=== PATIENT | female | born 1960 | race Hispanic/Latino ===

== ENCOUNTER 2018-01-26 09:33 | Observation (INO) | payer BC ==
[~2018-01-26] VITALS: Ht 162.6 cm; Wt 81.2 kg
[2018-01-26] MEDS ORDERED: ASPIRIN 81 MG CHEW TAB PO ONE (09:45)
[2018-01-26 10:03] LABS: BASOPHILS % 0.3 % (0.0-1.0); EOSINOPHILS # (AUTO) 0.2 (0.0-0.4); EOSINOPHILS % 3.1 % (0.0-6.0); HEMATOCRIT 39.7 % (34.2-44.1); HEMOGLOBIN 13.1 g/dL (12.0-16.0); LYMPHOCYTES # (AUTO) 1.7 (1.0-3.2); MEAN CORPUSCULAR HEMOGLOBIN 29.5 pg (28-32); MEAN CORPUSCULAR VOLUME 89.4 fL (81-99); MONOCYTES # (AUTO) 0.5 (0.2-0.8); MONOCYTES % 7.5 % (4.4-11.3); NEUTROPHILS # (AUTO) 4.1 (2.1-6.9); NEUTROPHILS % 62.9 % (38.7-80.0); PLATELET COUNT 271 x10e3/uL (140-360); RED BLOOD COUNT 4.44 x10e6/uL (3.6-5.1); RED CELL DISTRIBUTION WIDTH 13.1 % (11.7-14.4)
[2018-01-26 10:10] LABS: INR 1.04; PROTHROMBIN TIME 12.8 seconds (11.9-14.5)
[2018-01-26 10:11] LABS: PARTIAL THROMBOPLASTIN TIME 30.5 seconds (23.8-35.5)
[2018-01-26 10:18] LABS: ALANINE AMINOTRANSFERASE 11 IU/L (0-55); ALBUMIN 3.8 g/dL (3.5-5.0); ALBUMIN/GLOBULIN RATIO 1.1 (0.8-2.0); ALKALINE PHOSPHATASE 94 IU/L (40-150); ANION GAP 11.6 mmol/L (8-16); BLOOD UREA NITROGEN 10 mg/dL (7-26); BUN/CREATININE RATIO 15 (6-25); CALCIUM 9.5 mg/dL (8.4-10.2); CARBON DIOXIDE 27 mmol/L (22-29); CHLORIDE 108 mmol/L (98-107); CREATINE KINASE 84 IU/L (29-168); CREATININE, SERUM 0.66 mg/dL (0.57-1.11); EST GLOMERULAR FILTRATION RATE > 60 ML/MIN (60-); GLUCOSE 74 mg/dL (74-118); POTASSIUM 3.6 mmol/L (3.5-5.1); SODIUM 143 mmol/L (136-145)
--- NOTE | 2018-01-26 11:06 | Diagnostic Imaging Report ---
PROCEDURE: A single AP view of the chest. COMPARISON: None. INDICATIONS: LEFT ARM NUMBNESS, DIZZINESS FINDINGS: Lines/tubes: None. Lungs: The lungs are well inflated and clear. There is no evidence of pneumonia or pulmonary edema. Pleura: There is no pleural effusion or pneumothorax. Heart and mediastinum: The heart and the mediastinum are unremarkable. Bones: No acute bony abnormality. IMPRESSION: 1. No acute cardiopulmonary disease. Dictated by: Gerry Sr M.D. on 01/26/2018 at 11:08 Electronically approved by: Gerry Sr M.D. on 01/26/2018 at 11:08
[2018-01-26] MEDS ORDERED: SODIUM CHLORIDE FLUSH 10 ML SYR INJ PRN (11:45)
[2018-01-26] MEDS ORDERED: ONDANSETRON HCL INJ 2 MG/ML VIAL IV PRN (11:45)
[2018-01-26] MEDS ORDERED: MORPHINE SULFATE 2 MG/ML SYR IV PRN (11:45)
[2018-01-26] MEDS ORDERED: NITROGLYCERIN 0.4 MG SUBL SL PRN (11:45)
[2018-01-26] MEDS: FAMOTIDINE 20 MG TAB PO SCH ×2 (12:00→21:54)
--- OUTSIDE RECORDS SUMMARY | 2018-01-26 13:13 | XMS REPORT ---
[facility] Unknown Phone Unavailable Care Team Providers Care Lace Winder Name Role Phone STEPHEN GAGNON Unavailable Unavailable Problems This patient has no known problems. Allergies, Adverse Reactions, Alerts This patient has no known allergies or adverse reactions. Medications This patient has no known medications. Results Test Description Test Time Test Comments Text Results Atomic Results Result Comments CHEST SINGLE (PORTABLE) [place] [address] Patient Name: CHARLES COLON MR #: [id number] : 1960 Age/Sex: 57/F Req #: [id number] Adm Physician: Ordered by: STEPHEN GAGNON MD Report #: [id number] Location: ER Room/Bed: Procedure: [id number] DX/CHEST SINGLE (PORTABLE) Exam Date: 01/26/18 Exam Time: 0955 REPORT STATUS: Signed PROCEDURE: A single AP view of the chest. COMPARISON: None. INDICATIONS: LEFT ARM NUMBNESS, DIZZINESS FINDINGS: Lines/tubes: None. Lungs: The lungs are well inflated and clear. There is no evidence of pneumonia or pulmonary edema. Pleura: There is no pleural effusion or pneumothorax. Heart and mediastinum: The heart and the mediastinum are unremarkable. Bones: No acute bony abnormality. IMPRESSION: 1. No acute cardiopulmonary disease. Dictated by: Gerry Sr M.D. on 01/26/2018 at 11:08 Electronically approved by: Gerry Sr M.D. on 01/26/2018 at 11:08 Dictated By: GERRY SR MD 110 Transcribed By: PAULINO on 01/26/181107 COPY TO: STEPHEN GAGNON MD
[2018-01-26 13:30] VITALS: BP 140/76
[2018-01-26 13:49] VITALS: BP 126/87
[2018-01-26 15:18] VITALS: BP 140/76
[2018-01-26 17:07] LABS: CREATINE KINASE 74 IU/L (29-168)
--- NOTE | 2018-01-26 18:46 | History and Physical ---
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 She did not feel good and she apparently thought she was having a stroke or heart attack and came into the emergency room and was admitted for rule out [place]. Also complains of slight amount normal grief reaction from her father passing away recently with depression and has been having crying spells about it. The patient also has history of back pains. PAST MEDICAL HISTORY: Noncontributory. FAMILY HISTORY: History of diabetes mellitus. History of dad who just recently from pancreatic cancer and diabetes in mother. SOCIAL HISTORY: No EtOH. No IV drug abuse. No history of any smoking either. REVIEW OF SYSTEMS: Negative for chest pain. No shortness of breath. Positive for left arm pain. No nausea, vomiting, diarrhea. No constipation. No rectal bleeding. No hematochezia. No hematemesis. No blurry vision. No diplopia. SURGICAL HISTORY: Positive for hysterectomy and knee surgery. PHYSICAL EXAMINATION GENERAL: Patient is alert and oriented times 3. VITALS: Temperature is 97.8, blood pressure is 126/88, pulse is 81, respirations of 20. HEENT: Normocephalic, atraumatic. Pupils reactive to light and accommodation. CVS: S1, S2 normal. Regular rate, rhythm. ABDOMEN: Nontender, nondistended. EXTREMITIES: No clubbing, no cyanosis, no edema. BACK: Positive for tenderness in the lumbar spine. ASSESSMENT AND PLAN: Chest pain, atypical. Troponins have been negative. Laboratories are essentially normal. Will continue to monitor the patient, three sets of troponins and we can discharge the patient tomorrow in the morning. Further recommendations per clinical course. The patient is also possibly having lumbar pain. Will continue on nonsteroidal anti-inflammatory drug as needed for this. Job#: [id number]
[2018-01-26 18:56] VITALS: BP 140/76
[2018-01-26 21:27] VITALS: BP 157/84
[2018-01-26 21:45] VITALS: BP 157/84
[2018-01-26 22:03] LABS: CREATINE KINASE 65 IU/L (29-168)
[2018-01-27 00:46] VITALS: BP 124/76
[2018-01-27 04:00] VITALS: BP 118/74
[2018-01-27 04:43] VITALS: BP 118/74
[2018-01-27 06:39] LABS: BASOPHILS % 0.7 % (0.0-1.0); EOSINOPHILS # (AUTO) 0.2 (0.0-0.4); EOSINOPHILS % 3.8 % (0.0-6.0); HEMATOCRIT 40.1 % (34.2-44.1); LYMPHOCYTES # (AUTO) 1.8 (1.0-3.2); LYMPHOCYTES % 32.1 % (18.0-39.1); MEAN CORPUSCULAR HEMOGLOBIN 29.1 pg (28-32); MEAN CORPUSCULAR HGB CONC 32.4 g/dL (31-35); MEAN CORPUSCULAR VOLUME 89.7 fL (81-99); MONOCYTES # (AUTO) 0.5 (0.2-0.8); NEUTROPHILS % 54.2 % (38.7-80.0); PLATELET COUNT 249 x10e3/uL (140-360); RED BLOOD COUNT 4.47 x10e6/uL (3.6-5.1); RED CELL DISTRIBUTION WIDTH 13.2 % (11.7-14.4)
[2018-01-27 07:00] VITALS: BP 118/74
[2018-01-27 07:15] LABS: ANION GAP 11.3 mmol/L (8-16); BLOOD UREA NITROGEN 9 mg/dL (7-26); BUN/CREATININE RATIO 13 (6-25); CALCIUM 9.4 mg/dL (8.4-10.2); CARBON DIOXIDE 27 mmol/L (22-29); CHLORIDE 108 mmol/L (98-107); CHOL/HDL RATIO 4.4 (3.0-3.6); CHOLESTEROL 206 MD/DL (0-199); CREATINE KINASE 55 IU/L (29-168); CREATININE, SERUM 0.69 mg/dL (0.57-1.11); EST GLOMERULAR FILTRATION RATE > 60 ML/MIN (60-); GLUCOSE 90 mg/dL (74-118); HDL CHOLESTEROL 47 MG/DL (40-60); LDL CHOLESTEROL 138 MG/DL (60-130); POTASSIUM 4.3 mmol/L (3.5-5.1); SODIUM 142 mmol/L (136-145); TRIGLYCERIDES 103 MG/DL (0-149)
[2018-01-27 08:26] VITALS: BP 115/72
[2018-01-27] MEDS ORDERED: ONDANSETRON HCL 4 MG ORAL DISINTEGRATING TAB PO PRN (08:45)
[2018-01-27] MEDS ORDERED: ASPIRIN 81 MG ENTERIC COATED PO SCH (09:00)
== END 2018-01-27 08:30 | disposition home or self-care (01) ==
LOC: ER 09:33 → IMCU 13:10
PROVIDERS: ADMIT Family Medicine; ATTEND Family Medicine
DX: R07.89 Other chest pain (principal); F43.21 Adjustment disorder with depressed mood; Z80.8 Family history of malignant neoplasm of other organs or systems; Z83.3 Family history of diabetes mellitus; M54.9 Dorsalgia, unspecified; F41.9 Anxiety disorder, unspecified
CPT/HCPCS: 36415 ×2; 71045; 80048; 80053; 80061; 82550 ×2; 82553 ×2; 83880; 84484 ×2; 85025 ×2; 85610; 85730; 93005; 99284; G0378 ×2

== ENCOUNTER 2021-05-11 17:45 | Emergency (ER) | payer BC ==
[~2021-05-11] VITALS: Ht 162.6 cm; Wt 81.2 kg
== END 2021-05-11 18:40 | disposition home or self-care (01) ==
LOC: ER 18:30
DX: R05 Cough (principal); U07.1 COVID-19; D64.9 Anemia, unspecified
CPT/HCPCS: 99282

== ENCOUNTER 2021-05-17 15:49 | Inpatient (IN) | payer BC ==
[~2021-05-17] VITALS: Ht 162.6 cm; Wt 81.2 kg
[2021-05-17] MEDS ORDERED: DEXAMETHASONE SOD PHOS 10 MG/1 ML VIAL IV ONE (16:00)
[2021-05-17 16:24] LABS: HEMATOCRIT 42.6 % (34.2-44.1); HEMOGLOBIN 13.8 g/dL (12.0-16.0); MEAN CORPUSCULAR HEMOGLOBIN 29.1 pg (28-32); MEAN CORPUSCULAR VOLUME 89.7 fL (81-99); RED BLOOD COUNT 4.75 x10e6/uL (3.6-5.1)
[2021-05-17 16:25] LABS: BASOPHILS % 0.1 % (0.0-1.0); LYMPHOCYTES # (AUTO) 0.9 (1.0-3.2); MEAN CORPUSCULAR HGB CONC 32.4 g/dL (31-35); MONOCYTES # (AUTO) 0.8 (0.2-0.8); MONOCYTES % 5.3 % (4.4-11.3); NEUTROPHILS # (AUTO) 12.5 (2.1-6.9); NEUTROPHILS % 87.9 % (38.7-80.0); PLATELET COUNT 292 x10e3/uL (140-360)
[2021-05-17 16:33] LABS: INR 1.03; PROTHROMBIN TIME 13.7 seconds (11.9-14.5)
[2021-05-17 16:40] LABS: ALBUMIN 2.9 g/dL (3.5-5.0); ALBUMIN/GLOBULIN RATIO 0.6 (0.8-2.0); ANION GAP 21.5 mmol/L (8-16); CALCIUM 9.2 mg/dL (8.4-10.2); CREATININE, SERUM 0.73 mg/dL (0.57-1.11); POTASSIUM 3.5 mmol/L (3.5-5.1)
[2021-05-17] MEDS ORDERED: SODIUM CHLORIDE 0.9% 50ML 0 ML ONE (18:55)
[2021-05-17] MEDS ORDERED: IOPAMIDOL 370 MG/ML 200 ML INFUS..BTL INJ ONE (18:55)
[2021-05-17] MEDS ORDERED: SODIUM CHLORIDE 0.9% 250ML 250 ML ONE (19:11)
[2021-05-17] MEDS: CEFTRIAXONE 2 GM in SODIUM CHLORIDE 0.9% 100 ML IV SCH (19:57)
[2021-05-17] MEDS: ENOXAPARIN 30 MG/0.3 ML SYR SC SCH (20:03)
[2021-05-18 06:50] LABS: BASOPHILS % 0.1 % (0.0-1.0); HEMATOCRIT 41.1 % (34.2-44.1); HEMOGLOBIN 13.3 g/dL (12.0-16.0); LYMPHOCYTES # (AUTO) 0.6 (1.0-3.2); LYMPHOCYTES % 5.9 % (18.0-39.1); MEAN CORPUSCULAR HEMOGLOBIN 28.7 pg (28-32); MEAN CORPUSCULAR HGB CONC 32.4 g/dL (31-35); MEAN CORPUSCULAR VOLUME 88.6 fL (81-99); MONOCYTES # (AUTO) 0.4 (0.2-0.8); MONOCYTES % 4.2 % (4.4-11.3); NEUTROPHILS # (AUTO) 9.1 (2.1-6.9); NEUTROPHILS % 89.3 % (38.7-80.0); PLATELET COUNT 328 x10e3/uL (140-360); RED BLOOD COUNT 4.64 x10e6/uL (3.6-5.1); RED CELL DISTRIBUTION WIDTH 13.9 % (11.7-14.4)
[2021-05-18 07:11] LABS: ANION GAP 18.8 mmol/L (8-16); CREATININE, SERUM 0.62 mg/dL (0.57-1.11); POTASSIUM 3.8 mmol/L (3.5-5.1)
[2021-05-18] MEDS ORDERED: ZINC SULFATE 50 MG CAP PO SCH (09:00)
[2021-05-18] MEDS: ASCORBIC ACID 500 MG TAB PO SCH ×2 (09:38→16:43)
[2021-05-18] MEDS: ENOXAPARIN 30 MG/0.3 ML SYR SC SCH ×2 (09:38→22:38)
[2021-05-18] MEDS ORDERED: REMDESIVIR 200MG 200 MG in SODIUM CHLORIDE 0.9% 100 ML IV ONE (14:00)
[2021-05-18] MEDS ORDERED: BARICITINIB 2 MG TABLET PO SCH (14:00)
[2021-05-18] MEDS ORDERED: ASCORBIC ACID 500 MG TAB PO SCH (17:00)
[2021-05-18] MEDS ORDERED: DEXAMETHASONE SOD PHOS 10 MG/1 ML VIAL IV SCH (18:00)
[2021-05-18] MEDS: CEFTRIAXONE 2 GM in SODIUM CHLORIDE 0.9% 100 ML IV SCH (19:09)
[2021-05-18 23:28] VITALS: BP 115/83
[2021-05-19] MEDS ORDERED: ZINC SULFATE 50 MG CAP PO SCH (09:00)
[2021-05-19] MEDS ORDERED: REMDESIVIR 100MG 100 MG in SODIUM CHLORIDE 0.9% 100 ML IV SCH (14:00)
== END 2021-05-18 23:28 | disposition short-term general hospital (02) | DRG 177 ==
LOC: ER 16:00 → ERHOLD 18:20
PROVIDERS: ADMIT Family Medicine; ATTEND Family Medicine
PROC: 8E0ZXY6 Isolation (ICD-10-PCS; 2021-05-17)
PROC: 02HV33Z Insertion of Infusion Device into Superior Vena Cava, Percutaneous Approach (ICD-10-PCS; principal; 2021-05-18)
PROC: XW043E5 Introduction of Remdesivir Anti-infective into Central Vein, Percutaneous Approach, New Technology Group 5 (ICD-10-PCS; 2021-05-18)
DX: U07.1 COVID-19 (principal); J12.82 Pneumonia due to coronavirus disease 2019; J96.01 Acute respiratory failure with hypoxia; B17.8 Other specified acute viral hepatitis
CPT/HCPCS: 36415; 36569; 71045; 80048; 80053; 82550; 82553; 82728; 83605; 84484; 85025; 85379; 85610; 86140; 87040; 99284; J0456; J0696; J1100; J1650; J7050; Q9967; U0002